=== PATIENT | female | born 1995 | race Two or more races ===

== ENCOUNTER 2023-01-11 16:37 | Emergency (ER) | payer MEDICAID ==
[~2023-01-11] VITALS: Ht 157.5 cm; Wt 86.2 kg
[2023-01-11 17:10] VITALS: BP_SYST 135; PULSE 85; RESP 18; TEMP 98.3; O2SAT 98
== END 2023-01-11 19:29 | disposition home or self-care (01) ==
LOC: SED 16:37
DX: S62.522A Displaced fracture of distal phalanx of left thumb, initial encounter for closed fracture (principal); J45.909 Unspecified asthma, uncomplicated; Z79.899 Other long term (current) drug therapy; W23.0XXA Caught, crushed, jammed, or pinched between moving objects, initial encounter; Y93.89 Activity, other specified; Y92.89 Other specified places as the place of occurrence of the external cause; Y99.8 Other external cause status
CPT/HCPCS: 73140-TC; 99283

== ENCOUNTER 2023-09-11 16:29 | Emergency (ER) | payer MEDICAID ==
[~2023-09-11] VITALS: Ht 144.8 cm; Wt 86.2 kg
[2023-09-11 16:56] VITALS: BP_SYST 124; PULSE 103; RESP 18; TEMP 98.2; O2SAT 97
[2023-09-11 17:34] LABS: BASOPHILS # (AUTO) 0.1 K/uL (0.0-0.2); BASOPHILS % (AUTO) 0.7 % (0.0-2.0); EOSINOPHILS # (AUTO) 0.7 K/uL (0.0-0.4); EOSINOPHILS % (AUTO) 6.3 % (0.0-4.0); HEMATOCRIT 34.3 % (36-48); HEMOGLOBIN 11.2 g/dL (12.0-16.0); LYMPHOCYTES # (AUTO) 2.6 K/uL (1.0-5.5); LYMPHOCYTES % (AUTO) 24.4 % (20.5-51.5); MEAN CORPUSCULAR HEMOGLOBIN 26 pg (27-31); MEAN CORPUSCULAR HGB CONC 33 % (32-36); MEAN CORPUSCULAR VOLUME 79 fL (79.0-98.0); MONOCYTES # (AUTO) 0.6 K/uL (0.0-1.0); MONOCYTES % (AUTO) 5.5 % (1.7-9.3); NEUTROPHILS # (AUTO) 6.7 K/uL (1.8-7.7); NEUTROPHILS % (AUTO) 63.1 % (40.0-70.0); PLATELET COUNT (AUTO) 525 K/uL (130-430); RED BLOOD CELL COUNT(AUTO) 4.35 MIL/uL (4.2-6.2); RED CELL DISTRIBUTION WIDTH 18.3 % (9.0-15.0); WHITE BLOOD COUNT (AUTO) 10.7 K/uL (4.8-10.8)
[2023-09-11 18:26] LABS: ALBUMIN 3.8 g/dL (3.4-4.8); CALCIUM 8.8 mg/dL (8.4-11.0); CREATININE 0.79 mg/dL (0.55-1.30); POTASSIUM 4.1 mmol/L (3.5-5.1); TOTAL BILIRUBIN 0.3 mg/dL (0.0-1.0); TOTAL PROTEIN, SERUM 8.1 g/dL (6.4-8.3)
[2023-09-11 18:49] LABS: BILIRUBIN,URINE NEGATIVE (NEGATIVE); BLOOD, URINE NEGATIVE (NEGATIVE); CLARITY/URINE CLEAR (CLEAR); COLOR,URINE YELLOW (YELLOW); GLUCOSE,URINE NEGATIVE (NEGATIVE); KETONES,URINE NEGATIVE (NEGATIVE); LEUKOCYTE ESTERASE ,URINE NEGATIVE (NEGATIVE); NITRITE, URINE NEGATIVE (NEGATIVE); PROTEIN URINE NEGATIVE (NEGATIVE); UROBILINOGEN,URINE 0.2 (0.2-1.0)
[2023-09-11] MEDS: ACETAMINOPHEN 500 MG TABLET PO ONE (20:00)
[2023-09-11] MEDS: MECLIZINE HCL 25 MG TABLET (ANITVERT) PO ONE (20:00)
[2023-09-11] MEDS: KETOROLAC TROMETHAMINE 30 MG VIAL IM ONE (20:01)
[2023-09-11] MEDS ORDERED: NAPR-1172 PO (22:41)
[2023-09-11] MEDS ORDERED: DICY-14 PO (22:41)
[2023-09-11] MEDS ORDERED: ACET-2634 PO (22:41)
[2023-09-11 22:46] VITALS: BP_SYST 126; PULSE 94; RESP 20; TEMP 98.2; O2SAT 99
== END 2023-09-11 22:45 | disposition home or self-care (01) ==
LOC: SED 16:29
DX: R10.2 Pelvic and perineal pain (principal); R42 Dizziness and giddiness; R53.83 Other fatigue; J45.909 Unspecified asthma, uncomplicated; Z79.899 Other long term (current) drug therapy
CPT/HCPCS: 99285; 76856; 80053; 81001; 85025; 36415; 96372; 87491; 81003; J1885; J8597